=== PATIENT | female | born 1940 | race Caucasian/White ===

== ENCOUNTER 2016-10-25 16:32 | Emergency (ER) | payer MEDICARE, OTHER ==
--- NOTE | 2016-10-25 17:01 | ER Document Report ---
ED Medical Screen (RME) - General Stated Complaint: STOMACH PAIN Mode of Arrival: Wheelchair Information source: Patient Notes: Patient reports having a recent fundoplication procedure last month for hiatal hernia. Patient reports trying to have a bowel movement today straining. Patient complains of abdominal burning with trying to have a bowel movement and nausea. Patient took Zofran without relief of her nausea symptoms. Last bowel movement was 2 days ago. hx: Dyslipidemia, suzie fundiplic I have greeted and performed a rapid initial assessment of this patient. A comprehensive ED assessment and evaluation of the patient, analysis of test results and completion of the medical decision making process will be conducted by additional ED providers.ation TRAVEL OUTSIDE OF THE [place] IN LAST 30 DAYS: No - Related Data Allergies/Adverse Reactions: No Known Allergies Allergy (Verified 10/25/16 16:57) Past Medical History - Past Medical History Cardiac Medical History: Denies: Hx Heart Attack, Hx Hypertension Pulmonary Medical History: Denies: Hx Asthma Neurological Medical History: Denies: Hx Cerebrovascular Accident, Hx Seizures GI Medical History: Reports: Hx Hiatal Hernia. Denies: Hx Hepatitis, Hx Ulcer Infectious Medical History: Denies: Hx Hepatitis Past Surgical History: Reports: Hx Hysterectomy. Denies: Hx Mastectomy, Hx Open Heart Surgery, Hx Pacemaker Physical Exam - Vital signs Vitals: Temp Pulse Resp BP 97.6 F 83 22 H 136/76 H 10/25/16 16:38 10/25/16 16:38 10/25/16 16:38 10/25/16 16:38 - Abdominal Tenderness: Tender - Generalized abdomen Course - Vital Signs Vital signs: Temp Pulse Resp BP Pulse Ox 97.6 F 83 22 H 136/76 H 10/25/16 16:38 10/25/16 16:38 10/25/16 16:38 10/25/16 16:38
[2016-10-25 19:21] LABS: ABSOLUTE LYMPHOCYTES (AUTO) 1.7 10^3/uL (0.5-4.7); ABSOLUTE MONOCYTES (AUTO) 0.6 10^3/uL (0.1-1.4); ABSOLUTE NEUT (AUTO) 4.9 10^3/uL (1.7-8.2); BASOPHILS % (AUTO) 0.6 % (0-2); EOSINOPHILS % (AUTO) 0.3 % (0-6); HEMATOCRIT 43.5 % (36.0-47.0); HGB HCT DIFFERENCE -1.5; MEAN CORPUSCULAR HEMOGLOBIN 28.5 pg (27.0-33.4); MEAN CORPUSCULAR HGB CONC 32.1 g/dL (32.0-36.0); MEAN CORPUSCULAR VOLUME 89 fl (80-97); MONOCYTES % (AUTO) 7.8 % (3-13); RED CELL DISTRIBUTION WIDTH 14.8 % (11.5-14.0); SEGMENTED NEUTROPHILS % (AUTO) 67.3 % (42-78); WHITE BLOOD COUNT 7.2 10^3/uL (4.0-10.5)
[2016-10-25 19:34] LABS: ALANINE AMINOTRANSFERASE 20 U/L (9-52); ALBUMIN 3.8 g/dL (3.5-5.0); ALKALINE PHOSPHATASE 74 U/L (38-126); ANION GAP 11 (5-19); ASPARTATE AMINO TRANSFERASE 23 U/L (14-36); BILIRUBIN,TOTAL 0.7 mg/dL (0.2-1.3); BLOOD UREA NITROGEN 9 mg/dL (7-20); CARBON DIOXIDE 23 mmol/L (22-30); CHLORIDE 106 mmol/L (98-107); CREATININE RESULT 0.64 mg/dL (0.52-1.25); GLUCOSE 96 mg/dL (75-110); LIPASE 29.9 U/L (23-300); POTASSIUM 3.3 mmol/L (3.6-5.0); SODIUM 140.3 mmol/L (137-145); TOTAL PROTEIN 6.7 g/dL (6.3-8.2)
[2016-10-25] MEDS ORDERED: PROMETHAZINE HCL 25 MG TABLET PO ONE (19:35)
[2016-10-25] MEDS ORDERED: METOCLOPRAMIDE HCL INJ/PF 10 MG/2 ML SDV IV ONE (19:45)
[2016-10-25] MEDS ORDERED: DIPHENHYDRAMINE HCL 50 MG/ML VIAL IV ONE (19:45)
[2016-10-25] MEDS ORDERED: NORMAL SALINE 1000 ML 500 ML IV ONE (19:46)
--- NOTE | 2016-10-25 19:48 | ER Document Report ---
ED GI/ - General Chief Complaint: Abdominal Pain Stated Complaint: STOMACH PAIN Time seen by provider: 19:40 Mode of Arrival: Wheelchair Notes: Patient is a 76-year-old female that comes emergency department for chief complaint of nausea and lower abdominal cramping. Patient is status post Jeremiah fundoplication by on 09/21/16 in [facility]. Patient states that she was seen for her symptoms of nausea and constipation already, placed on Zofran and a stool softener, states that today she had increased nausea and when she tried to go to the bathroom her stomach began to cramp. She is already back on her regular medications and eating a normal diet. Patient denies any fever, denies any current abdominal pain, states she is very nauseated. Patient states that she has not had a bowel movement for 2 days, she was placed on a stool softener. TRAVEL OUTSIDE OF THE [place] IN LAST 30 DAYS: No - Related Data Allergies/Adverse Reactions: No Known Allergies Allergy (Verified 10/25/16 16:57) Past Medical History - General Information source: Patient - Social History Smoking Status: Never Smoker Chew tobacco use (# tins/day): No Frequency of alcohol use: None Drug Abuse: None Lives with: Family Family History: Reviewed & Not Pertinent Patient has suicidal ideation: No Patient has homicidal ideation: No - Past Medical History Cardiac Medical History: Denies: Hx Heart Attack, Hx Hypertension Pulmonary Medical History: Denies: Hx Asthma Neurological Medical History: Denies: Hx Cerebrovascular Accident, Hx Seizures Renal/ Medical History: Denies: Hx Peritoneal Dialysis GI Medical History: Reports: Hx Hiatal Hernia. Denies: Hx Hepatitis, Hx Ulcer Infectious Medical History: Denies: Hx Hepatitis Past Surgical History: Reports: Hx Abdominal Surgery - Jeremiah fundoplication, Hx Hysterectomy. Denies: Hx Mastectomy, Hx Open Heart Surgery, Hx Pacemaker Review of Systems - Review of Systems Constitutional: No symptoms reported EENT: No symptoms reported Cardiovascular: No symptoms reported Respiratory: No symptoms reported Gastrointestinal: See HPI Genitourinary: No symptoms reported Female Genitourinary: No symptoms reported Musculoskeletal: No symptoms reported Skin: No symptoms reported Hematologic/Lymphatic: No symptoms reported Neurological/Psychological: No symptoms reported Physical Exam - Vital signs Vitals: Temp Pulse Resp BP 97.6 F 83 22 H 136/76 H 10/25/16 16:38 10/25/16 16:38 10/25/16 16:38 10/25/16 16:38 Interpretation: Normal - General General appearance: Anxious In distress: Mild - Patient appears uncomfortable, repeating that she is nauseated - HEENT Head: Normocephalic, Atraumatic Eyes: Normal Conjunctiva: Normal Eyelashes: Normal Pupils: PERRL Sinus: Normal Nasal: Normal Mouth/Lips: Normal Mucous membranes: Normal Pharynx: Normal Neck: Normal - Respiratory Respiratory status: No respiratory distress. No: Tachypnea Chest status: Nontender Breath sounds: Normal. No: Decreased air movement, Nonproductive cough, Wheezing Chest palpation: Normal - Cardiovascular Rhythm: Regular Heart sounds: Normal auscultation Murmur: No - Abdominal Inspection: Normal, Healed incision - Healed incisions that are slightly reason , no open wounds Distension: No distension Bowel sounds: Normal Tenderness: Tender - There is generalized abdominal tenderness which is mild over the both the upper and lower abdomen, nonspecific, no guarding Organomegaly: No organomegaly - Back Back: Normal, Nontender. No: Tender, CVA tenderness - Extremities General upper extremity: Normal inspection, Nontender, Normal ROM, Normal strength General lower extremity: Normal inspection, Nontender, Normal ROM, Normal strength - Neurological Neuro grossly intact: Yes Cognition: Normal Orientation: AAOx4 [place] Coma Scale Eye Opening: Spontaneous True Coma Scale Verbal: Oriented [place] Coma Scale Motor: Obeys Commands [place] Coma Scale Total: 15 Speech: Normal Cranial nerves: Normal Cerebellar coordination: Normal Motor strength normal: LUE, RUE, LLE, RLE Additional motor exam normals: Equal sleeve sewer Sensory: Normal - Psychological Associated symptoms: Normal affect, Normal mood - Skin Skin Temperature: Warm Skin Moisture: Dry Skin Color: Normal Course - Re-evaluation Re-evalutation: No leukocytosis, no fever, no tachycardia, no hypotension. Patient treated with Reglan, Benadryl, IV fluids. After this her symptoms resolved. Chemistries unremarkable. Acute abdominal series shows no abnormalities. Urinalysis shows large leukocyte esterase and white blood cells, good sample. Patient's complaint of lower abdominal tenderness and cramping with nausea are most likely from urinary tract infection, less likely postoperative especially with patient being over 30 days postoperative. Discussed with Dr. Gracia who recommends consultation with provider salesperson burial needs for patient's surgeon. 10/25/16 09:43 Discussed with the cardiothoracic surgeon salesperson burial needs Dr. Supa Marie, discussed history, presentation, workup, symptoms. He does not recommend any additional evaluation, recommend antibiotic's, nausea medication, and follow-up with their clinic. Discussed with patient, she states she feels so good that she wants to go home. Patient was given a dose of Rocephin, will be started on Keflex, urine culture , patient given Reglan as an option because she did so well with it here in the emergency department. Patient instructed to return immediately if she develops any return or severe abdominal pain, fever, vomiting, bloody bowel movements, or any other concerning symptoms. Patient states understanding and agreement. - Vital Signs Vital signs: Temp Pulse Resp BP Pulse Ox 98.6 F 64 14 123/59 L 94 10/25/16 22:08 10/25/16 22:08 10/25/16 22:08 10/25/16 22:08 10/25/16 22:08 - Laboratory Result Diagrams: 10/25/16 19:00 10/25/16 19:00 Laboratory results interpreted by me: 10/25/16 10/25/16 10/25/16 19:00 19:00 19:40 RDW 14.8 H Potassium 3.3 L Urine Blood SMALL H Ur Leukocyte Esterase LARGE H Discharge - Discharge Clinical Impression: Nausea Abdominal pain Qualifiers: Abdominal location: lower abdomen, unspecified Qualified Code(s): R10.30 - Lower abdominal pain, unspecified Urinary tract infection Qualifiers: Urinary tract infection type: site unspecified Hematuria presence: without hematuria Qualified Code(s): N39.0 - Urinary tract infection, site not specified Condition: Stable Disposition: HOME, SELF-CARE Additional Instructions: Your x-ray imaging does not show any acute abnormality. Your symptoms and workup are most consistent with symptoms from a urinary tract infection. Please take the Keflex antibiotics as prescribed. Give Zofran for nausea, you can take Benadryl if needed additionally, take the Reglan if needed (alternative to zofran). Follow-up with your provider within the next several days. Please return immediately for any concerning or worsening symptoms including fever, severe abdominal pain, etc. Prescriptions: Cephalexin Monohydrate [Keflex 500 mg Capsule] 500 mg PO BID #10 capsule Metoclopramide HCl [Reglan] 5 mg PO ASDIR PRN #20 tablet PRN Reason: Referrals: GIULIANA ODOM MD [Primary Care Provider] - Follow up as needed
[2016-10-25 20:00] LABS: APPEARANCE,URINE CLEAR; BILIRUBIN,URINE NEGATIVE (NEGATIVE); GLUCOSE, URINE NEGATIVE (NEGATIVE); KETONES,URINE NEGATIVE (NEGATIVE); LEUKOCYTE ESTERASE,URINE LARGE (NEGATIVE); NITRITE,URINE NEGATIVE (NEGATIVE); PROTEIN,URINE NEGATIVE (NEGATIVE); URINE SPECIFIC GRAVITY 1.006; UROBILINOGEN,URINE NEGATIVE mg/dL (<2.0)
[2016-10-25] MEDS ORDERED: CEFTRIAXONE 1 GM/D5W RTU 50 ML IV ONE (20:26)
[2016-10-25 22:57] VITALS: BP 123/59
== END 2016-10-25 22:10 | disposition home or self-care (01) ==
LOC: ER 16:32
DX: N39.0 Urinary tract infection, site not specified (principal); R10.30 Lower abdominal pain, unspecified; R11.0 Nausea
CPT/HCPCS: 99284; 96361; 96375; 96365; 36415; 87086; 83690; 83735; 85025; 87088; 80053; 81001; 87186; 74022; J1200; J2765; J7030; J0696